=== PATIENT | male | born 1990 | race African-American/Black ===

== ENCOUNTER 2021-10-11 20:53 | Emergency (ER) | payer OTHER, SELFPAY ==
[2021-10-11] MEDS ORDERED: Ketorolac Tromethamine 30 MG/ML VIAL ONE (21:54)
[2021-10-11] MEDS ORDERED: Mag-Al Plus 1200 MG/1200 MG/120 MG/30 ML UDCUP ONE (21:54)
[2021-10-11] MEDS ORDERED: Aspirin Chewable 81 MG TAB ONE (21:54)
[2021-10-11] MEDS ORDERED: Lidocaine Viscous Sol 2% 15 ml UD Cup ONE (21:54)
[2021-10-11 22:45] LABS: ALT (SGPT) 18 U/L (8-55); AST (SGOT) 19 U/L (5-34); Albumin 4.1 g/dL (3.5-5.0); Alkaline Phosphatase 60 U/L (40-110); Anion Gap 15 mmol/L (10-20); BUN (Urea Nitrogen) 12 mg/dL (8.9-20.6); Bilirubin, Total 0.4 mg/dL (0.2-1.2); CK (CPK) 245 U/L (30-200); Calc. Creatinine Clearance 0 mL/min (70-130); Calcium 8.9 mg/dL (7.8-10.44); Carbon Dioxide 24 mmol/L (22-29); Chloride 108 mmol/L (98-107); Globulin 2.7 g/dL (2.4-3.5); Glucose 104 mg/dL (70-105); Lipase 17 U/L (8-78); Potassium 4.3 mmol/L (3.5-5.1); Protein, Total 6.8 g/dL (6.0-8.3); Sodium 143 mmol/L (136-145)
[2021-10-11 23:29] LABS: #Basophils 0.1 thou/uL (0.0-0.2); #Eosinphils 0.2 thou/uL (0.0-0.7); #Lymphocytes 2.2 thou/uL (1.20-3.40); #Monocytes 0.4 thou/uL (0.11-0.59); #Neutrophils 2.7 thou/uL (1.40-6.50); %Basophils 2.2 % (0.0-1.0); %Eosinophils 3.6 % (0.0-10.0); %Lymphocytes 39.2 % (21.0-51.0); %Monocytes 6.7 % (0.0-10.0); %Neutrophils 48.3 % (42.0-75.0); Hemoglobin 14.9 g/dL (14.0-18.0); Mean Corpuscular HGB CONC 31.7 g/dL (32.0-36.0); Mean Corpuscular Hemoglobin 27.9 pg (27.0-31.0); Mean Corpuscular Volume 88.2 fL (78.0-98.0); Mean Platelet Volume 11.8 fL (7.4-10.4); Platelet Count 216 thou/uL (130-400); RBC Distribution Width 12.6 % (11.5-14.5); Red Blood Cell (RBC) Count 5.35 mill/uL (4.70-6.10); White Blood Cell (WBC) Count 5.5 thou/uL (4.8-10.8)
== END 2021-10-12 | disposition home or self-care (01) ==
LOC: MADERS 20:53
DX: R07.9 Chest pain, unspecified (principal); F17.210 Nicotine dependence, cigarettes, uncomplicated
CPT/HCPCS: 71045; 80053; 82550; 83690; 84484; 85025; 93005; 96372; J1885

== ENCOUNTER 2021-10-23 06:12 | Emergency (ER) | payer SELFPAY ==
[2021-10-23 07:12] LABS: #Basophils 0.1 thou/uL (0.0-0.2); #Eosinphils 0.1 thou/uL (0.0-0.7); #Monocytes 0.4 thou/uL (0.11-0.59); #Neutrophils 2.3 thou/uL (1.40-6.50); %Eosinophils 2.9 % (0.0-10.0); %Lymphocytes 40.8 % (21.0-51.0); %Monocytes 8.1 % (0.0-10.0); %Neutrophils 46.3 % (42.0-75.0); Hemoglobin 15.5 g/dL (14.0-18.0); Mean Corpuscular Hemoglobin 27.7 pg (27.0-31.0); Mean Corpuscular Volume 86.4 fL (78.0-98.0); Mean Platelet Volume 12.3 fL (7.4-10.4); Platelet Count 197 thou/uL (130-400); RBC Distribution Width 12.4 % (11.5-14.5)
[2021-10-23 07:14] LABS: ALT (SGPT) 20 U/L (8-55); AST (SGOT) 19 U/L (5-34); Albumin 4.1 g/dL (3.5-5.0); Alkaline Phosphatase 60 U/L (40-110); Anion Gap 15 mmol/L (10-20); BUN (Urea Nitrogen) 13 mg/dL (8.9-20.6); Bilirubin, Total 0.7 mg/dL (0.2-1.2); Calc. Creatinine Clearance 0 mL/min (70-130); Calcium 8.6 mg/dL (7.8-10.44); Carbon Dioxide 22 mmol/L (22-29); Chloride 108 mmol/L (98-107); Glucose 94 mg/dL (70-105); Potassium 3.4 mmol/L (3.5-5.1); Protein, Total 7.1 g/dL (6.0-8.3); Sodium 142 mmol/L (136-145)
[2021-10-23 07:17] LABS: Lipase 11 U/L (8-78)
[2021-10-23 07:24] LABS: Anisocytosis SLIGHT = 6-15 cells (100X) (0-5/hpf); Platelet Morphology Comment Appears Adequate
[2021-10-23 07:31] LABS: Magnesium 1.9 mg/dL (1.6-2.6)
[2021-10-23] MEDS ORDERED: Sodium Chloride 0.9% 1,000 ML ONE (07:32)
== END 2021-10-23 08:47 | disposition home or self-care (01) ==
LOC: MADERS 06:12
DX: R19.7 Diarrhea, unspecified (principal); F17.210 Nicotine dependence, cigarettes, uncomplicated
CPT/HCPCS: 80053; 82150; 83690; 83735; 85025; 96360; J7050

== ENCOUNTER 2023-01-23 01:33 | Emergency (ER) | payer SELFPAY ==
[2023-01-23] MEDS ORDERED: Ondansetron ODT 4 MG TAB ONE (02:11)
[2023-01-23 02:33] LABS: SARS-CoV-2 NAA Rapid Test Not Detected (NotDetected)
== END 2023-01-23 02:45 | disposition home or self-care (01) ==
LOC: MADERS 01:33
DX: B34.9 Viral infection, unspecified (principal); F17.210 Nicotine dependence, cigarettes, uncomplicated; Z20.822 Contact with and (suspected) exposure to COVID-19
CPT/HCPCS: 99284; Q0162